=== PATIENT | male | born 1975 | race Caucasian/White ===

== ENCOUNTER → 2022-05-13 | Outpatient (CLI) | payer MEDICAID, SELFPAY | END | disposition home or self-care (01) | PROVIDERS: Visit Provider Internal Medicine | DX: G47.10 Hypersomnia, unspecified (principal); R53.83 Other fatigue; R29.818 Other symptoms and signs involving the nervous system | CPT/HCPCS: 95810 ==

== ENCOUNTER → 2022-06-13 | Outpatient (CLI) | payer MEDICAID, SELFPAY ==
[2022-06-13 16:39] LABS: Absolute Lymphocyte Count 1.83 X10^3/uL (0.83-4.51); Absolute Neutrophil Count 5.4 X10^3/uL (2.0-7.7); Basophil# 0.09 X10^3/uL; Basophil% 1.1 % (0-1); Eosinophil# 0.15 X10^3/uL; Eosinophils% 1.8 % (0-5); Hematocrit 45.5 % (40-54); Hemoglobin 14.8 g/dL (13.0-16.5); Lymphocyte # 1.83 X10^3/ul (0.83-4.51); Lymphocyte % 22.2 % (19-41); Mean Corp Hgb Conc 32.5 g/dL (32-36); Mean Corpuscular Hgb 29.6 pg (27.0-32.0); Mean Platelet Vol. 9.5 fl (6.2-12.0); Monocyte% 9.7 % (0-10); NRBC Flagged by Analyzer 0 % (0-5); Neutrophil # 5.35 X10^3/uL (2.7-7.7); Neutrophil % 64.8 % (47-70); Platelet Count 388 K/mm3 (150-450); RBC Distribution Width CV 14.6 % (11.6-14.6); RBC Distribution Width SD 49.1 fl (35.1-43.9); Vitamin D,25 Hydroxy 14.9 ng/mL; White Blood Count 8.3 K/mm3 (4.4-11.0)
[2022-06-13 16:46] LABS: ALB/GLOB Ratio 1.1 RATIO (0.9-2.4); AST(SGOT) 25 U/L (15-37); Alanine Aminotransfer ALT/SGPT 37 U/L (16-61); Albumin, Serum 3.8 g/dL (3.2-5.0); Alkaline Phosphatase 123 U/L (45-117); Anion Gap 6 (5-15); BUN 16 mg/dL (7-18); BUN/Creat Ratio 18.2 RATIO (10-20); Calcium,Total 9.1 mg/dL (8.5-10.1); Chloride 105 mmol/L (98-107); Cholesterol 260 mg/dL (200); Creatinine, Serum 0.88 mg/dL (0.70-1.30); EST Glomerular Filtration Rate 100 mL/min (>60); Est Glom Filt Rate - Afr Amer 121 mL/min (>60); Globulin 3.6 g/dL (2.2-4.2); Glucose 95 mg/dL (74-106); High Density Lipoprotein 34 mg/dL; Potassium 3.9 mmol/L (3.5-5.1); Protein, Total 7.4 g/dL (6.4-8.2); Sodium Level 138 mmol/L (136-145); Thyroid Stim Hormone (TSH) 3.03 uIU/mL (0.358-3.74); Triglycerides 337 mg/dL; Very Low Density Lipoprotein 67 mg/dL (5-40)
== END | disposition home or self-care (01) ==
LOC: BIMLAB 15:30
PROVIDERS: PCP Internal Medicine; Referring Provider Internal Medicine; Visit Provider Internal Medicine
DX: R53.83 Other fatigue (principal); R29.818 Other symptoms and signs involving the nervous system; Z13.6 Encounter for screening for cardiovascular disorders; Z83.3 Family history of diabetes mellitus
CPT/HCPCS: 36415; 80053; 80061; 82306; 83036; 84443; 85025

== ENCOUNTER → 2023-06-29 | Outpatient (CLI) | payer SELFPAY ==
[2023-06-29 15:37] LABS: Absolute Lymphocyte Count 1.86 X10^3/uL (0.83-4.51); Absolute Neutrophil Count 4.5 X10^3/uL (2.0-7.7); Basophil# 0.05 X10^3/uL; Basophil% 0.7 % (0-1); Eosinophil# 0.15 X10^3/uL; Eosinophils% 2.1 % (0-5); Hematocrit 44.6 % (40-54); Hemoglobin 14.4 g/dL (13.0-16.5); Lymphocyte # 1.86 X10^3/ul (0.83-4.51); Lymphocyte % 25.4 % (19-41); Mean Corp Hgb Conc 32.3 g/dL (32-36); Mean Corpuscular Volume 89.7 fL (80-94); Mean Platelet Vol. 9.4 fl (6.2-12.0); Monocyte# 0.72 X10^3/uL; Monocyte% 9.8 % (0-10); NRBC Flagged by Analyzer 0 % (0-5); Neutrophil % 61.6 % (47-70); Platelet Count 444 K/mm3 (150-450); RBC Distribution Width CV 14.1 % (11.6-14.6); RBC Distribution Width SD 46.6 fl (35.1-43.9); Red Blood Count 4.97 M/mm3 (4.6-6.2); White Blood Count 7.3 K/mm3 (4.4-11.0)
[2023-06-29 16:28] LABS: ALB/GLOB Ratio 1.1 RATIO (0.9-2.4); AST(SGOT) 27 U/L (15-37); Alanine Aminotransfer ALT/SGPT 63 U/L (16-61); Albumin, Serum 3.8 g/dL (3.2-5.0); Alkaline Phosphatase 140 U/L (45-117); Anion Gap 4 (5-15); BUN 17 mg/dL (7-18); BUN/Creat Ratio 22.3 RATIO (10-20); Calcium,Total 9.1 mg/dL (8.5-10.1); Chloride 109 mmol/L (98-107); Creatinine, Serum 0.76 mg/dL (0.70-1.30); EST Glomerular Filtration Rate 117 mL/min (>60); Est Glom Filt Rate - Afr Amer 142 mL/min (>60); Globulin 3.5 g/dL (2.2-4.2); Glucose 80 mg/dL (74-106); Potassium 4.2 mmol/L (3.5-5.1); Protein, Total 7.3 g/dL (6.4-8.2); Sodium Level 140 mmol/L (136-145)
--- OUTSIDE RECORDS SUMMARY | 2023-06-29 21:26 | XMS RPT_ITS | CCD ---
Author Name Unknown Address [id number] [place] [address] Organization [facility] Care Team Providers Care Gis Professor Name Role Phone NO FAMILY PHYSICIAN, 837 Unavailable Unavail able FABIO SHEARER Unavailable Unavailable PROVIDER, UNKNOWN Referring Unavailable No, PCP Primary Care Unavailable EYAD WILSON Attending Unavailable PROVIDER, UNKNOWN Referring Unavailable No, PCP Primary Care Unavailable Jorge Castellano Attending Unavailable PROVIDER, UNKNOWN Referring Unavailable No, PCP Primary Care Unavailable Domenico Vazquez Attending Unavailable Unavailable [facility] Primary Care Provider Patricia Barksdale MD Primary Care Provider PATRICIA BARKSDALE Primary Care Unavailable EYAD MAO Attending Unavailable PATRICIA BARKSDALE Primary Care Unavailable ELIDA VU Attending Unavailable EYAD MAO Referring Unavailable JUS HENDRIX Admitting Unavailable AV SARMIENTO Referring Unav ailable PATRICIA BARKSDALE Primary Care Unavailable PATRICIA BARKSDALE Referring Unavailable PATRICIA BARKSDALE Referring Unavailable PATRICIA BARKSDALE Referring Unavailable Medications Current Medications Medication Drug Class(es) Dates Sig (Normalized) Sig (Original) aspirin 81 mg delayed release oral tablet (1 source) Platelet Aggregation Inhibitor, Nonsteroidal Anti-inflammatory Drug Start: 06-21-2023 End: 07-21-2023 take 1 tablet by mouth once daily aspirin, enteric coated (ASPIRIN, ENTERIC COATED) 81 mg EC tablet Take 1 tablet by mouth once daily. Patient should start on June 21, 2023. 30 tablet 0 06/21/2023 07/21/2023 Active Completed/Discontinued Medications Medication Drug Class(es) Dates Sig (Normalized) Sig (Original) acetaminophen 325 mg / HYDROcodone bitartrate 5 mg oral tablet (1 source) Opioid Agonist Start: 09-04-2019 End: 09-04-2019 HYDROcodone-acetam inophen (NORCO) 5-325 MG per tablet 1 tablet erythromycin 0.005 mg/mg ophthalmic ointment (1 source) Macrolide, Macrolide Antimicrobial Start: 08-20-2018 End: 09-04-2019 erythromycin (ROMYCIN) 5 MG/GM ophthalmic ointment Place 0.5 cm into the left eye 2 times daily 1 Tube 0 08/20/2018 09/04/2019 Discontinued (LIST CLEANUP) Problems Problem Classification Problem Date Documented Date Episodic/Chronic Acute cerebrovascular disease (5 sources) Stroke of uncertain pathology; Translations: [Cerebral infarction, unspecified] Onset: 06-13-2023 06-15-2023 Chronic Disorders of lipid metabolism (1 source) Mixed hyperlipidemia; Translations: [Mixed hyperlipidemia] Onset: 07-23-2022 Chronic Nutritional deficiencies (1 source) Vitamin D deficiency, unspecified; Translations: [Avitaminosis D] Onset: 07-23-2022 Chronic Other circulatory disease (1 source) Other specified symptoms and signs involving the circulatory and respiratory systems; Translations: [Suspected cerebrovascular accident (CVA)] Onset: 06-14-2023 Episodic Other circulatory disease (1 source) Suspected cerebrovascular accident; Translations: [Other specified symptoms and signs involving the circulatory and respiratory systems] Onset: 06-14-2023 06-14-2023 Episodic Other connective tissue disease (1 source) Rupture of tendon of biceps; Translations: [Rupture of left distal biceps tendon, initial encounter] Episodic Other connective tissue disease (1 source) Neurological symptom; Translations: [Unspecified symptoms and signs involving the nervous system] Onset: 06-14-2023 06-14-2023 Episodic Other injuries and conditions due to external causes (2 sources) Foreign body in cornea, right eye, initial encounter; Translations: [Foreign body in cornea, right eye, initial encounter] Onset: 08-20-2018 Other injuries and conditions due to external causes (2 sources) Foreign body in cornea, left eye, initial encounter; Translations: [Foreign body in cornea, left eye, initial encounter] Onset: 05-07-2018 Other nervous system disorders (1 source) Aphasia; Translations: [Aphasia] 06-13-2023 Chronic Other nervous system disorders (1 source) Disturbance in speech; Translations: [Unspecified speech disturbances] Onset: 06-14-2023 06-14-2023 Episodic Substance-related disorders (1 source) Nicotine dependence; Translations: [Nicotine dependence, unspecified, uncomplicated] Onset: 06-14-2023 06-14-2023 Chronic Transient cerebral ischemia (1 source) Transient cerebral ischemia; Translations: [Transient cerebral ischemic attack, unspecified] Onset: 06-14-2023 06-14-2023 Chronic Unclassified (1 source) Foreign body in right cornea; Translations: [Corneal foreign body, right, initial encounter] Onset: 05-02-2018 08-20-2018 Results Test Name Value Interpretation Reference Range Facil ity Vital Signs Date Time Vital Sign Value Performing Clinician Faci litsina 09-04-2019 19:58-0400 BP Diastolic 86 mm[Hg] [place], [place] 09-04-2019 19:58-0400 BP Systolic 145 mm[Hg] [place] 09-04-2019 19:58-0400 Pulse (Heart Rate) 80 /min [place], [place] 09-04-2019 19:58-0400 Pulse Oximetry 96 % [place], [place] 09-04-2019 19:58-0400 Respiratory Rate 14 /min [place], [place] 09-04-2019 18:50-0400 Body Temperature 98.49 [degF] [place] Encounters Encounter Date Encounter Type Care Provider Facility Start: 06-21-2023 ambulatory AV SARMIENTO Facility:[facility] Start: 06-21-2023 End: 06-21-2023 Subsequent hospital visit by physician Ekg/Holter/Event Monitor [facility] Procedures Date Procedure Procedure Detail Performing Clinician Start: 06-14-2023 Lipid 1996 panel - S angus or Plasma Ekg/Holter/Event [facility] Start: 07-23-2022 Lipid 1996 panel - S angus or Plasma Yulia Mckeon MD Work Phone: Start: 09-04-2019 Radex elbow complete minimum 3 views Cale Saraviaash Work Phone: Plan of Treatment Date Care Activity Detail Author Start: 06-14-2028 Lipid panel Lipid Screening [facility] Start: 08-11-2027 DTaP/Tdap/Td vaccine (2 - Td) DTaP/Tdap/Td vaccine (2 - Td) [place], [place] Start: 08-11-2027 Urine microalbumin profile DTaP,Tdap,Td Vaccine (2 - Td or Tdap) [facility] Start: 07-24-2027 Lipid panel Lipid Screening [facility] Start: 07-24-2027 LIPID SCREEN LIPID SCREEN [facility] Start: 06-14-2026 Diabetes Screening Diabetes Screening [facility] Start: 06-13-2026 Diabetes Screening Diabetes Screening [facility] Start: 08-05-2025 DIABETES SCREEN DIABETES SCREEN [facility] Start: 05-01-2023 Depression Assessment Depression Assessment [facility] Start: 12-30-2022 Influenza vaccination [facility] Start: 2022 COLOGUARD (FIT-DNA) COLOGUARD (FIT-DNA) [facility] Start: 2022 Colonoscopy COLONOSCOPY [facility] Start: 2022 COLORECTAL CANCER SCREENING COLORECTAL CANCER SCREENING [facility] Start: [address] COLONOGRAPHY [facility] Start: 2022 FECAL OCCULT BLOOD FECAL OCCULT BLOOD [facility] Start: 2022 Screening for malignant neoplasm of colon [facility] Start: 2022 SIGMOIDOSCOPY SIGMOIDOSCOPY [facility] Start: 05-01-2022 DEPRESSION ASSESSMENT DEPRESSION ASSESSMENT [facility] Start: 12-31-2019 Influenza vaccination Flu vaccine (Season Ended) [place], [place] Start: 2017 Lipid panel Lipid screen [place], [place] Start: 1996 Urine microalbumin profile DTAP,TDAP,TD (1 - Tdap) [facility] Start: 08-03-1995 HEPATITIS C SCREENING HEPATITIS C SCREENING [facility] Start: 08-03-1995 HIV SCREENING HIV SCREENING [facility] Start: 08-03-1995 HIV screening HIV Screening [facility] Start: 1992 HIV screening HIV screen [place], [place] Start: 08-03-1983 PNEUMOCOCCAL (1 - PCV) PNEUMOCOCCAL (1 - PCV) [facility] Start: 08-03-1983 Pneumococcal 0-64 years Vaccine (1 of 1 - PPSV23) Pneumococcal 0-64 years Vaccine (1 of 1 - PPSV23) [place], [place] Start: 08-03-1983 Pneumococcal vaccination Pneumococcal Vaccine (1 of 2 - PCV) [facility] Start: 02-01-1978 COVID-19 VACCINE (#1) COVID-19 VACCINE (#1) [facility] Start: 1977 HEPATITIS B (1 of 3 - 3-dose series) HEPATITIS B (1 of 3 - 3-dose series) [facility] Start: 1977 Hepatitis B Vaccine (1 of 3 - 3-dose series) Hepatitis B Vaccine (1 of 3 - 3-dose series) [facility] Payers Date Payer Category Payer Medicaid [employer] [facility] [employer] [facility] [place] [id number] 2022-Present [phone] [address] [address] [place] [address] Medicaid [id number] 2022 Medicaid [id number] 2018 Medicaid [employer] [place] [employer] [facility] [place] [employer] xxxxxxxxxxxx 2018-Present [phone] [address] [address] [place] [address] xxxxxxxxxxxx [id number] 1977 Unknown [id number] 1977 Unknown [id number] 1977 Unknown [id number] Unknown Social History Date Type Detail Facility Start: 09-04-2019 End: 09-30-2021 Tobacco smoking status NHIS Current every day smoker [facility] Start: 09-04-2019 End: 06-14-2023 Cigarettes smoked current (pack per day) - Reported [facility] Work Phone: Start: 09-04-2019 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1975 [facility] Exposure to SARS-CoV -2 (event) [facility] to assess [facility] History of tobacco use Cigarette Smoker [facility] Start: 09-30-2021 Tobacco use and exposure Smokeless tobacco non-user [facility] Start: 10-11-2021 End: 06-13-2023 Alcohol intake Ex-drinker (finding) [facility] Start: 06-13-2023 End: 06-14-2023 Tobacco use panel [facility] Work Phone: National Score (1-10 0), lower number is lower risk 81 [facility] Work Phone: Has the [employer], or [employer] threatened to shut off services in your home in past 12Mo No [facility] Work Phone: (I/We) worried wheth er (my/our) food would run out before (I/we) got money to buy more. Never true [facility] Work Phone: Clinical Notes 06-13-2023 to 06-21-2023 Kari Montero Strategic Planning Specialist - 06/21/2023 11:00 AM Yulia Talbot MD - 06/13/2023 2:23 PM EST Note Date & Type Note Facility 06-21-2023 Nurse Note Event monitor applied. Pt verbalized understanding of monitor use and appropriately demonstrated recording a baseline. documented in this encounter [facility] 06-20-2023 Note HNO ID: [id number] Author: JASE MCKENZIE RN Service: ? Author Type: Registered Nurse Type: Nursing Progress Note Filed: 06/20/2023 18:17 Note Text: Patient given AVS, no questions at this time. Patient walked to the main entrance for discharge. [facility] 06-20-2023 Note HNO ID: [id number] Author: JASE MCKENZIE RN Service: ? Author Type: Registered Nurse Type: Nursing Progress Note Filed: 06/20/2023 12:23 Note Text: Patient is on IV fluids due to NPO status, but patient requested to be disconnected this morning. [facility] 06-19-2023 Note HNO ID: [id number] Author: ARVIN ISABEL MD Service: Hospital Medicine Author Type: Physician Type: Progress Notes Filed: 06/19/2023 15:26 Note Text: INPATIENT PROGRESS NOTE [facility] OF [facility] MEDICINE SERVICE DATE: 06/19/2023 NIGHT AND WEEKEND COVERAGE: From 7am - 7pm, please call Sound Attending After 7pm, please call cross cover pager #[phone] Subjective No acute events overnight. +frustrated Current Facility-Administered Medications Medication Dose Route Frequency NaCl 0.9% iv flush bag 20 mL INTRAVENOUS PRN acetaminophen 650 mg tab(s) (TYLENOL) 650 mg ORAL q 6 H PRN aspirin, enteric coated 81 mg tab(s) 81 mg ORAL DAILY clopidogrel 75 mg tab(s) (PLAVIX) 75 mg ORAL DAILY nicotine 21 mg/24 hr 1 Patch (NICODERM) 1 Patch TRANSDERMAL DAILY And nicotine -- REMOVE patch OTHER DAILY And nicotine - verify patch OTHER q 8 H atorvastatin 80 mg tab(s) (LIPITOR) 80 mg ORAL AT BEDTIME calcium carbonate 750 mg chewable tab(s) (TUMS) 750 mg ORAL TID PRN pantoprazole DR 40 mg tab(s) (PROTONIX) 40 mg ORAL DAILY (6 AM) aluminum-magnesium hydroxide-simethicone 200-200-20 mg/5 mL 30 mL 30 mL ORAL q 6 H PRN Objective PHYSICAL EXAM: BP 111/71 Pulse 79 Temp (Src) 97.9 (Oral) Resp 18 Ht 5' 8 (1.73m) Wt 186 lb 15.2 oz (84.8kg) SpO2 97% BMI 28.43 kg/(m2). O2 Therapy: Room Air General Appearance: no acute distress, appears stated age Lungs: Clear to auscultation bilaterally, respirations unlabored Heart: Regular rate and rhythm, S1, S2 normal, no murmur Abdomen: Soft, non-tender, bowel sounds active Extremities: No leg edema Pulses: 2+ and symmetric. Brisk capillary refill DATA: WBC (k/uL) Date Value 06/14/2023 6.69 Hemoglobin (g/dL) Date Value 06/14/2023 15.4 Hematocrit (%) Date Value 06/14/2023 45.4 MCV (fL) Date Value 06/14/2023 89.2 Platelet Count (k/uL) Date Value 06/14/2023 170 BUN (mg/dL) Date Value 06/14/2023 18 Creatinine (mg/dL) Date Value 06/14/2023 0.67 Sodium (mmol/L) Date Value 06/14/2023 134 Potassium (no units) Date Value 06/14/2023 Comment: Unable to assay due to interference from hemolysis. Suggest reorder as clinically indicated. Alkaline Phosphatase (no units) Date Value 06/14/2023 Comment: Unable to assay due to interference from hemolysis. Suggest reorder as clinically indicated. AST (no units) Date Value 06/14/2023 Comment: Unable to assay due to interference from hemolysis. Suggest reorder as clinically indicated. ALT (no units) Date Value 06/14/2023 Comment: Unable to assay due to interference from hemolysis. Suggest reorder as clinically indicated. I have reviewed today's vital signs, medications, labs, and imaging. 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 CT brain and CTA head and neck negative for acute pathology. No thrombolysis. MRI showed multiple acute infarcts involving the above regions. Echocardiogram showed normal left ventricular ejection fraction with intracardiac shunting. Evaluated by physical, occupational and speech therapy. Neurology recommends dual antiplatelet therapy with aspirin and Plavix for 21 days followed by aspirin monotherapy. Atorvastatin 80 mg daily. Lifestyle modifications. DVT ultrasound pending. Discussed with Neurology. Discussed with Cardiology. Plan for BRITNI tomorrow. NPO after midnight. Hypercoagulable panel pending. #asymptomatic COVID infection Persistent COVID+ . Diagnosed with COVID 2 months ago. Continue to monitor. On room air #Nicotine use disorder, F17.2 Assessment AND Plan: smoking cessation I reviewed: Most recent labs and imaging results. Most recent labs Most recent imaging Most recent EKG VTE Prophylaxis: Anticoagulant AND Antiplatelet Medications (From admission, onward) Start Dose Route Frequency Last Action Ordered Stop 06/14/23 1130 aspirin, enteric coated 81 mg tab(s) 81 mg ORAL DAILY Given, 06/19 0906/14/23 1129 -- 06/14/23 1130 clopidogrel 75 mg tab(s) (PLAVIX) 75 mg ORAL DAILY Given, 06/19 90306/14/23 1129 07/05/23 0859 Plan of care discussed with: Provider, RN, Patient. Agrees to plan. All questions and concerns answered to patient's satisf (more content not included)... [facility] 06-19-2023 Note HNO ID: [id number] Author: BROCK PÉREZ RN Service: Care Management Author Type: Registered Nurse Type: Care Mgt Progress Note Filed: 06/19/2023 12:58 Note Text: CARE MANAGEMENT PROGRESS NOTE SERVICE DATE: 06/19/2023 SERVICE TIME: 12:57 PM LOS: 4 days Needs Prior to Discharge: None Chart reviewed. [place] states he is over income for Medicaid application. Financial Counselor is trying to make contact to see if he is HCAP or FAS eligible. Therapy recommends home no needs. The patient's significant other will drive him home when ready for discharge. SIGNATURE: Brock Pérez RN PATIENT NAME: Yu Kuhn DATE: June 19, 2023 TIME: 12:57 PM PAGER/CONTACT #: [phone] [facility] 06-18-2023 Note HNO ID: [id number] Author: ARVIN ISABEL MD Service: Hospital Medicine Author Type: Physician Type: Progress Notes Filed: 06/18/2023 13:00 Note Text: INPATIENT PROGRESS NOTE DEPARTMENT OF HOSPITAL MEDICINE SERVICE DATE: 06/18/2023 NIGHT AND WEEKEND COVERAGE: From 7am - 7pm, please call Sound Attending After 7pm, please call cross cover pager #[phone] Subjective No acute events overnight. Denies dyspnea or new focal weakness Current Facility-Administered Medications Medication Dose Route Frequency NaCl 0.9% iv flush bag 20 mL INTRAVENOUS PRN sodium chloride 0.9 % (flush) 2-10 mL (BD POSIFLUSH) 2-10 mL INTRAVENOUS DIRECTED PRN And perflutren lipid microspheres 1.1 mg/mL 1.3 mL injection (DEFINITY) 1.3 mL INTRAVENOUS DIRECTED PRN acetaminophen 650 mg tab(s) (TYLENOL) 650 mg ORAL q 6 H PRN aspirin, enteric coated 81 mg tab(s) 81 mg ORAL DAILY clopidogrel 75 mg tab(s) (PLAVIX) 75 mg ORAL DAILY nicotine 21 mg/24 hr 1 Patch (NICODERM) 1 Patch TRANSDERMAL DAILY And nicotine -- REMOVE patch OTHER DAILY And nicotine - verify patch OTHER q 8 H atorvastatin 80 mg tab(s) (LIPITOR) 80 mg ORAL AT BEDTIME calcium carbonate 750 mg chewable tab(s) (TUMS) 750 mg ORAL TID PRN Objective PHYSICAL EXAM: BP 128/87 Pulse 68 Temp (Src) 97.5 (Oral) Resp 16 Ht 5' 8 (1.73m) Wt 186 lb 15.2 oz (84.8kg) SpO2 98% BMI 28.43 kg/(m2). O2 Therapy: Room Air General Appearance: no acute distress, appears stated age Lungs: Clear to auscultation bilaterally, respirations unlabored Heart: Regular rate and rhythm, S1, S2 normal, no murmur Abdomen: Soft, non-tender, bowel sounds active Extremities: No leg edema Pulses: 2+ and symmetric. Brisk capillary refill DATA: WBC (k/uL) Date Value 06/14/2023 6.69 Hemoglobin (g/dL) Date Value 06/14/2023 15.4 Hematocrit (%) Date Value 06/14/2023 45.4 MCV (fL) Date Value 06/14/2023 89.2 Platelet Count (k/uL) Date Value 06/14/2023 170 BUN (mg/dL) Date Value 06/14/2023 18 Creatinine (mg/dL) Date Value 06/14/2023 0.67 Sodium (mmol/L) Date Value 06/14/2023 134 Potassium (no units) Date Value 06/14/2023 Comment: Unable to assay due to interference from hemolysis. Suggest reorder as clinically indicated. Alkaline Phosphatase (no units) Date Value 06/14/2023 Comment: Unable to assay due to interference from hemolysis. Suggest reorder as clinically indicated. AST (no units) Date Value 06/14/2023 Comment: Unable to assay due to interference from hemolysis. Suggest reorder as clinically indicated. ALT (no units) Date Value 06/14/2023 Comment: Unable to assay due to interference from hemolysis. Suggest reorder as clinically indicated. I have reviewed today's vital signs, medications, labs, and imaging. 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 CT brain and CTA head and neck negative for acute pathology. No thrombolysis. MRI showed multiple acute infarcts involving the above regions. Echocardiogram showed normal left ventricular ejection fraction with intracardiac shunting. Evaluated by physical, occupational and speech therapy. Neurology recommends dual antiplatelet therapy with aspirin and Plavix for 21 days followed by aspirin monotherapy. Atorvastatin 80 mg daily. Lifestyle modifications. DVT ultrasound pending. Neuro following. Plan BRITNI. TBD given COVID + status. Hypercoagulable panel pending. #asymptomatic COVID infection Persistent COVID+ . Diagnosed with COVID 2 months ago. Continue to monitor. On room air #Nicotine use disorder, F17.2 Assessment AND Plan: smoking cessation I reviewed: Most recent labs and imaging results. Most recent labs Most recent imaging Most recent EKG VTE Prophylaxis: Anticoagulant AND Antiplatelet Medications (From admission, onward) Start Dose Route Frequency Last Action Ordered Stop 06/14/23 1130 aspirin, enteric coated 81 mg tab(s) 81 mg ORAL DAILY Given, 06/18 0806/14/23 1129 -- 06/14/23 1130 clopidogrel 75 mg tab(s) (PLAVIX) 75 mg ORAL DAILY Given, 06/18 85806/14/23 1129 07/05/23 0859 Plan of care discussed with: Provider, RN, Patient. Agrees to plan. All questions and concer (more content not included)... [facility] 06-17-2023 Note HNO ID: [id number] Author: ARVIN ISABEL MD Service: Hospital Medicine Author Type: Physician Type: Progress Notes Filed: 06/17/2023 13:07 Note Text: INPATIENT PROGRESS NOTE DEPARTMENT OF HOSPITAL MEDICINE SERVICE DATE: 06/17/2023 NIGHT AND WEEKEND COVERAGE: From 7am - 7pm, please call Sound Attending After 7pm, please call cross cover pager #[phone] Subjective No acute events overnight. Upset about needing to stay for BRITNI Current Facility-Administered Medications Medication Dose Route Frequency NaCl 0.9% iv flush bag 20 mL INTRAVENOUS PRN sodium chloride 0.9 % (flush) 2-10 mL (BD POSIFLUSH) 2-10 mL INTRAVENOUS DIRECTED PRN And perflutren lipid microspheres 1.1 mg/mL 1.3 mL injection (DEFINITY) 1.3 mL INTRAVENOUS DIRECTED PRN acetaminophen 650 mg tab(s) (TYLENOL) 650 mg ORAL q 6 H PRN aspirin, enteric coated 81 mg tab(s) 81 mg ORAL DAILY clopidogrel 75 mg tab(s) (PLAVIX) 75 mg ORAL DAILY nicotine 21 mg/24 hr 1 Patch (NICODERM) 1 Patch TRANSDERMAL DAILY And nicotine -- REMOVE patch OTHER DAILY And nicotine - verify patch OTHER q 8 H atorvastatin 80 mg tab(s) (LIPITOR) 80 mg ORAL AT BEDTIME calcium carbonate 750 mg chewable tab(s) (TUMS) 750 mg ORAL TID PRN Objective PHYSICAL EXAM: BP 134/85 Pulse 64 Temp (Src) 97.6 (Oral) Resp 18 Ht 5' 8 (1.73m) Wt 186 lb 15.2 oz (84.8kg) SpO2 99% BMI 28.43 kg/(m2). O2 Therapy: Room Air General Appearance: no acute distress, appears stated age Lungs: Clear to auscultation bilaterally, respirations unlabored Heart: Regular rate and rhythm, S1, S2 normal, no murmur Abdomen: Soft, non-tender, bowel sounds active Extremities: No leg edema Pulses: 2+ and symmetric. Brisk capillary refill DATA: WBC (k/uL) Date Value 06/14/2023 6.69 Hemoglobin (g/dL) Date Value 06/14/2023 15.4 Hematocrit (%) Date Value 06/14/2023 45.4 MCV (fL) Date Value 06/14/2023 89.2 Platelet Count (k/uL) Date Value 06/14/2023 170 BUN (mg/dL) Date Value 06/14/2023 18 Creatinine (mg/dL) Date Value 06/14/2023 0.67 Sodium (mmol/L) Date Value 06/14/2023 134 Potassium (no units) Date Value 06/14/2023 Comment: Unable to assay due to interference from hemolysis. Suggest reorder as clinically indicated. Alkaline Phosphatase (no units) Date Value 06/14/2023 Comment: Unable to assay due to interference from hemolysis. Suggest reorder as clinically indicated. AST (no units) Date Value 06/14/2023 Comment: Unable to assay due to interference from hemolysis. Suggest reorder as clinically indicated. ALT (no units) Date Value 06/14/2023 Comment: Unable to assay due to interference from hemolysis. Suggest reorder as clinically indicated. I have reviewed today's vital signs, medications, labs, and imaging. 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 CT brain and CTA head and neck negative for acute pathology. No thrombolysis. MRI showed multiple acute infarcts involving the above regions. Echocardiogram showed normal left ventricular ejection fraction with intracardiac shunting. Evaluated by physical, occupational and speech therapy. Neurology recommends dual antiplatelet therapy with aspirin and Plavix for 21 days followed by aspirin monotherapy. Atorvastatin 80 mg daily. Lifestyle modifications. DVT ultrasound pending. Discussed with Neurology. Plan BRITNI. Hypercoagulable panel pending. #Nicotine use disorder, F17.2 Assessment AND Plan: smoking cessation I reviewed: Most recent labs and imaging results. Most recent labs Most recent imaging Most recent EKG VTE Prophylaxis: Anticoagulant AND Antiplatelet Medications (From admission, onward) Start Dose Route Frequency Last Action Ordered Stop 06/14/23 1130 aspirin, enteric coated 81 mg tab(s) 81 mg ORAL DAILY Given, 06/17 89906/14/23 1129 -- 06/14/23 1130 clopidogrel 75 mg tab(s) (PLAVIX) 75 mg ORAL DAILY Given, 06/17 89906/14/23 1129 07/05/23 0859 Plan of care discussed with: Provider, RN, Patient. Agrees to plan. All questions and concerns answered to patient's satisfaction. I examined the patient and reviewed the chart. SIGNATURE: Arvin Isabel MD PATIENT NAME: Yu Malcolm (more content not included)... [facility] 06-16-2023 Note HNO ID: [id number] Author: ARVIN ISABEL MD Service: Hospital Medicine Author Type: Physician Type: Progress Notes Filed: 06/16/2023 11:02 Note Text: INPATIENT PROGRESS NOTE [facility]PARTMENT OF [facility] MEDICINE SERVICE DATE: 06/16/2023 NIGHT AND WEEKEND COVERAGE: From 7am - 7pm, please call Sound Attending After 7pm, please call cross cover pager #[phone] Subjective No acute events overnight. No medical concerns nor complaints Current Facility-Administered Medications Medication Dose Route Frequency NaCl 0.9% iv flush bag 20 mL INTRAVENOUS PRN sodium chloride 0.9 % (flush) 2-10 mL (BD POSIFLUSH) 2-10 mL INTRAVENOUS DIRECTED PRN And perflutren lipid microspheres 1.1 mg/mL 1.3 mL injection (DEFINITY) 1.3 mL INTRAVENOUS DIRECTED PRN acetaminophen 650 mg tab(s) (TYLENOL) 650 mg ORAL q 6 H PRN aspirin, enteric coated 81 mg tab(s) 81 mg ORAL DAILY clopidogrel 75 mg tab(s) (PLAVIX) 75 mg ORAL DAILY nicotine 21 mg/24 hr 1 Patch (NICODERM) 1 Patch TRANSDERMAL DAILY And nicotine -- REMOVE patch OTHER DAILY And nicotine - verify patch OTHER q 8 H atorvastatin 80 mg tab(s) (LIPITOR) 80 mg ORAL AT BEDTIME Objective PHYSICAL EXAM: BP 140/67 Pulse 68 Temp (Src) 97.7 (Oral) Resp 16 Ht 5' 8 (1.73m) Wt 186 lb 15.2 oz (84.8kg) SpO2 98% BMI 28.43 kg/(m2). O2 Therapy: Room Air General Appearance: no acute distress, appears stated age Lungs: Clear to auscultation bilaterally, respirations unlabored Heart: Regular rate and rhythm, S1, S2 normal, no murmur Abdomen: Soft, non-tender, bowel sounds active Extremities: No leg edema Pulses: 2+ and symmetric. Brisk capillary refill DATA: WBC (k/uL) Date Value 06/14/2023 6.69 Hemoglobin (g/dL) Date Value 06/14/2023 15.4 Hematocrit (%) Date Value 06/14/2023 45.4 MCV (fL) Date Value 06/14/2023 89.2 Platelet Count (k/uL) Date Value 06/14/2023 170 BUN (mg/dL) Date Value 06/14/2023 18 Creatinine (mg/dL) Date Value 06/14/2023 0.67 Sodium (mmol/L) Date Value 06/14/2023 134 Potassium (no units) Date Value 06/14/2023 Comment: Unable to assay due to interference from hemolysis. Suggest reorder as clinically indicated. Alkaline Phosphatase (no units) Date Value 06/14/2023 Comment: Unable to assay due to interference from hemolysis. Suggest reorder as clinically indicated. AST (no units) Date Value 06/14/2023 Comment: Unable to assay due to interference from hemolysis. Suggest reorder as clinically indicated. ALT (no units) Date Value 06/14/2023 Comment: Unable to assay due to interference from hemolysis. Suggest reorder as clinically indicated. I have reviewed today's vital signs, medications, labs, and imaging. 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 CT brain and CTA head and neck negative for acute pathology. No thrombolysis. MRI showed multiple acute infarcts involving the above regions. Echocardiogram showed normal left ventricular ejection fraction with intracardiac shunting. Evaluated by physical, occupational and speech therapy. Neurology recommends dual antiplatelet therapy with aspirin and Plavix for 21 days followed by aspirin monotherapy. Atorvastatin 80 mg daily. Lifestyle modifications. DVT ultrasound pending. Discussed with Neurology. Plan BRITNI. Hypercoagulable panel pending. #Nicotine use disorder, F17.2 Assessment AND Plan: smoking cessation I reviewed: Most recent labs and imaging results. Most recent labs Most recent imaging Most recent EKG VTE Prophylaxis: Anticoagulant AND Antiplatelet Medications (From admission, onward) Start Dose Route Frequency Last Action Ordered Stop 06/14/23 1130 aspirin, enteric coated 81 mg tab(s) 81 mg ORAL DAILY Given, 06/16 82406/14/23 1129 -- 06/14/23 1130 clopidogrel 75 mg tab(s) (PLAVIX) 75 mg ORAL DAILY Given, 06/16 82406/14/23 1129 07/05/23 0859 Plan of care discussed with: Provider, RN, Patient. Agrees to plan. All questions and concerns answered to patient's satisfaction. I examined the patient and reviewed the chart. SIGNATURE: Arvin Isabel MD PATIENT NAME: Yu Kuhn DATE: June 16, 2023 TIME: 11:02 AM PAGER: [facility] 06-16-2023 Note HNO ID: [id number] Author: BECKI VASQUEZ RN Service: Care Management Author Type: Registered Nurse Type: Care Mgt Progress Note Filed: 06/19/2023 09:34 Note Text: CARE MANAGEMENT PROGRESS NOTE SERVICE DATE: 06/16/2023 SERVICE TIME: 10:08 AM LOS: 1 day Needs Prior to Discharge: To Be Determined Chart reviewed, Plan is return home. Therapy recommends home with no skilled needs. Patient is independent, lives at home with his S.O. and their children. S.O. to provide transport at [facility] to continue to follow. SIGNATURE: Becki Vasquez RN PATIENT NAME: Yu Kuhn DATE: June 16, 2023 TIME: 10:08 AM PAGER/CONTACT #: [phone] [facility] 06-15-2023 Note HNO ID: [id number] Author: ARVIN ISABEL MD Service: Hospital Medicine Author Type: Physician Type: Progress Notes Filed: 06/15/2023 16:48 Note Text: INPATIENT PROGRESS NOTE DEPARTMENT OF HOSPITAL MEDICINE SERVICE DATE: 06/15/2023 NIGHT AND WEEKEND COVERAGE: From 7am - 7pm, please call Sound Attending After 7pm, please call cross cover pager #[phone] Subjective No acute events overnight. No new concerns or complaints. Current Facility-Administered Medications Medication Dose Route Frequency NaCl 0.9% iv flush bag 20 mL INTRAVENOUS PRN sodium chloride 0.9 % (flush) 2-10 mL (BD POSIFLUSH) 2-10 mL INTRAVENOUS DIRECTED PRN And perflutren lipid microspheres 1.1 mg/mL 1.3 mL injection (DEFINITY) 1.3 mL INTRAVENOUS DIRECTED PRN acetaminophen 650 mg tab(s) (TYLENOL) 650 mg ORAL q 6 H PRN aspirin, enteric coated 81 mg tab(s) 81 mg ORAL DAILY clopidogrel 75 mg tab(s) (PLAVIX) 75 mg ORAL DAILY nicotine 21 mg/24 hr 1 Patch (NICODERM) 1 Patch TRANSDERMAL DAILY And nicotine -- REMOVE patch OTHER DAILY And nicotine - verify patch OTHER q 8 H atorvastatin 80 mg tab(s) (LIPITOR) 80 mg ORAL AT BEDTIME Objective PHYSICAL EXAM: BP 134/80 Pulse 63 Temp (Src) 98.2 (Axillary) Resp 18 Ht 5' 8 (1.73m) Wt 186 lb 15.2 oz (84.8kg) SpO2 99% BMI 28.43 kg/(m2). O2 Therapy: Room Air General Appearance: awake, alert, no acute distress, appears stated age Lungs: Clear to auscultation bilaterally, respirations unlabored Heart: Regular rate and rhythm, S1, S2 normal, no murmur Abdomen: Soft, non-tender, bowel sounds active Extremities: No leg edema Pulses: 2+ and symmetric. Brisk capillary refill DATA: WBC (k/uL) Date Value 06/14/2023 6.69 Hemoglobin (g/dL) Date Value 06/14/2023 15.4 Hematocrit (%) Date Value 06/14/2023 45.4 MCV (fL) Date Value 06/14/2023 89.2 Platelet Count (k/uL) Date Value 06/14/2023 170 BUN (mg/dL) Date Value 06/14/2023 18 Creatinine (mg/dL) Date Value 06/14/2023 0.67 Sodium (mmol/L) Date Value 06/14/2023 134 Potassium (no units) Date Value 06/14/2023 Comment: Unable to assay due to interference from hemolysis. Suggest reorder as clinically indicated. Alkaline Phosphatase (no units) Date Value 06/14/2023 Comment: Unable to assay due to interference from hemolysis. Suggest reorder as clinically indicated. AST (no units) Date Value 06/14/2023 Comment: Unable to assay due to interference from hemolysis. Suggest reorder as clinically indicated. ALT (no units) Date Value 06/14/2023 Comment: Unable to assay due to interference from hemolysis. Suggest reorder as clinically indicated. I have reviewed today's vital signs, medications, labs, and imaging. Problem List Suspected cerebrovascular accident (CVA) (POA: Yes) TIA (transient ischemic attack) (POA: Status not on file) Speech disturbance (POA: Status not on file) Stroke-like symptoms (POA: Status not on file) Nicotine use disorder, F17.2 (POA: Status not on file) Stroke (cerebrum) (HCC) (POA: Status not on file) Assessment/Plan # Multiple acute infarcts involving the left frontal, left parietal and left temporal lobes suspect embolic in setting of patent foramen ovale # Acute aphasia and dysarthria with confusion secondary to above, resolved Very pleasant 47-year-old gentleman without any significant medical history presents emergency department complaining of acute onset aphasia, dysarthria and confusion. CT brain and CTA head and neck negative for acute pathology. No thrombolysis. MRI showed multiple acute infarcts involving the above regions. Echocardiogram showed normal left ventricular ejection fraction with intracardiac shunting. Evaluated by physical, occupational and speech therapy. Neurology recommends dual antiplatelet therapy with aspirin and Plavix for 21 days followed by aspirin monotherapy. Atorvastatin 80 mg daily. Lifestyle modifications. DVT ultrasound pending. #Nicotine use disorder, F17.2 Assessment AND Plan: smoking cessation I reviewed: Most recent labs and imaging results. Most recent labs Most recent imaging Most recent EKG VTE Prophylaxis: Anticoagulant AND Antiplatelet Medications (From admission, onward) Start Dose Route Frequency Last Action Ordered Stop 06/14/23 1130 aspirin, enteric coated 81 mg tab(s) 81 mg ORAL DAILY Given, 06/15 0747 06/14/23 1129 -- 06/14/23 1130 clopidogrel 75 mg tab(s) (PLAVIX) 75 mg ORAL DAILY Given, 06/15 0747 06/14/23 1129 07/05/23 0859 Plan of care discussed with: Provider, RN, Patient. Agrees to plan. All questions and concerns answered to patient's satisfaction. I examined the patient and reviewed the chart. SIGNATURE: Arvin Isabel MD PATIENT NAME: Yu Kuhn DATE: June 15, 2023 TIME: 4:46 PM PAGER: [facility] 06-14-2023 Note HNO ID: [id number] Author: ARVIN ISABEL MD Service: Hospital Medicine Author Type: Physician Type: Progress Notes Filed: 06/14/2023 17:39 Note Text: Neuro recommendations reviewed. MRI brain remains pending. Physical and occupational therapy evaluation. DAPT. Statin. COVID+. Asymptomatic from COVID standpoint. Satting 95-96% on RA [facility] 06-13-2023 Note HNO ID: [id number] Author: YULIA MCKEON MD Service: ? Author Type: Fellow Type: Progress Notes Filed: 06/13/2023 15:53 Note Text: Stroke Fellow Plan of Care 47M with no PMHx who presents to [place] ED with acute language difficulty. LKW best estimated to be 1 pm. Notably, pt was sending texts to his sister normally at 12:30pm. He then called his sister around 1:30 pm and was severely aphasic. On initial ED exam, NIH 5 (2 severe aphasia, 1 dysarthria, 2 questions). The patient will point to his right side, although right now his right side seems to be working ok. Notably, the patient was also sick earlier today with vomiting and diarrhea. Blood glucose 116. BP 122/82. CTH no acute process. CTA no LVO or high grade stenosis No contraindications for IV thrombolysis identified. If it is confident that the last known well is <4.5 hours, and deficits are still disabling, it would be reasonable to offer IV thrombolysis for this patient. Per chart review, it appears the patient's symptoms improved and no IV thrombolysis was given. Patient does not need to be autolaunched to [place] as pt is not a candidate for EVT. Will plan for transfer to [facility] for further neurological evaluation. Yulia Mckeon MD Vascular Neurology Fellow, PGY-5 Under the supervision of stroke staff, Dr. Lopez [facility] 06-13-2023 History of Present illness Narrative Stroke Fellow Plan of Care 47M with no PMHx who presents to [place] ED with acute language difficulty. LKW best estimated to be 1 pm. Notably, pt was sending texts to his sister normally at 12:30pm. He then called his sister around 1:30 pm and was severely aphasic. On initial ED exam, NIH 5 (2 severe aphasia, 1 dysarthria, 2 questions). The patient will point to his right side, although right now his right side seems to be working ok. Notably, the patient was also sick earlier today with vomiting and diarrhea. Blood glucose 116. BP 122/82. CTH no acute process. CTA no LVO or high grade stenosis No contraindications for IV thrombolysis identified. If it is confident that the last known well is <4.5 hours, and deficits are still disabling, it would be reasonable to offer IV thrombolysis for this patient. Per chart review, it appears the patient's symptoms improved and no IV thrombolysis was given. Patient does not need to be autolaunched to [place] as pt is not a candidate for EVT. Will plan for transfer to [facility] for further neurological evaluation. Yulia Mckeon MD Vascular Neurology Fellow, PGY-5 Under the supervision of stroke staff, Dr. 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 * Distal Biceps Tendon Repair: Pre-op (Fijian) documented in this encounter Assessments Diagnosis Rupture of left distal biceps tendon, initial encounter Health Concerns Infection Onset Date Last Indicated Resolved Time COVID-19 Confirmed 06/14/2023 06/14/2023 Additional Source Comments (unrecognized sect ion and content) No Status Records FoundNo Status Records FoundNo Status Records FoundNo Status Records FoundNo Status Records FoundNo Status Records Found INFORMATION SOURCE (unrecogn ized section and content) DATE CREATED AUTHOR AUTHOR'S ORGANIZ ATION 08/27/2018 [facility] [employer] DATE CREATED AUTHOR AUTHOR'S ORGANIZ ATION [facility]/25/2019 [facility] DATE CREATED AUTHOR AUTHOR'S ORGANIZ ATION 12/25/2019 [facility] [employer] DATE CREATED AUTHOR AUTHOR'S ORGANIZ ATION 06/15/2023 [facility] DATE CREATED AUTHOR AUTHOR'S ORGANIZ ATION 06/27/2023 [facility] Reason for Visit (unrecogniz ed section and content) Reason Comments Opened In Error Reason Comments language difficulty Specialty Diagnoses / Procedures Referred By Contac t Referred To Contact [facility] Diagnoses Stroke (HCC) Procedures EVENT MONITOR [address] S[address] MD [address] [place] [address] [facility] [place] [address] [place] [address] Referral ID Status Reason Start Date Expiration Date Visits Requested Visits Authorized [id number] New Request OON/Self Pay Override 06/21/2023 09/28/2024 1 1 Source Comments (unrecognize d section and content) In the event this informatio n is protected by the Federal Confidentiality of Alcohol and Drug Abuse Patient Records regulations: The Federal rules restrict any use of the information to criminally investigate or prosecute any alcohol or drug abuse patient.[facility] the event this information is protected by the Federal Confidentiality of Alcohol and Drug Abuse Patient Records regulations: The Federal rules restrict any use of the information to criminally investigate or prosecute any alcohol or drug abuse patient.[facility] the event this information is protected by the Federal Confidentiality of Alcohol and Drug Abuse Patient Records regulations: The Federal rules restrict any use of the information to criminally investigate or prosecute any alcohol or drug abuse patient.[facility] Care Teams (unrecognized sec tion and content) Gis Professor Relationship Specialty Start Date End Date Patricia Barksdale MD [address] [place], [place] [address] PCP - General Internal Medicine 06/13/23 Gis Professor Relationship Specialty Start Date End Date Patricia Barksdale MD [address] [place], [place] [id number] PCP - General Internal Medicine 06/13/23 FOR RECORDS PERTAINING TO PATIENTS WHO ARE OR HAVE BEEN ENROLLED IN A CHEMICAL DEPENDENCY/SUBSTANCEABUSE PROGRAM, SOME INFORMATION MAY BE OMITTED. This clinical summary was aggregated from multiple sources. Caution should be exercised in using it in the provision of clinical care. This summary normalizes information from multiple sources, and as a consequence, information in this document may materially change the coding, format and clinical context of patient data. In addition, data may be omitted in some cases. CLINICAL DECISIONS SHOULD BE BASED ON THE PRIMARY CLINICAL RECORDS. [facility] [employer] [facility]. provides no warranty or guarantee of the accuracy or completeness of information in this document.
== END | disposition home or self-care (01) ==
LOC: BIMLAB 14:01
PROVIDERS: PCP Internal Medicine; Referring Provider Internal Medicine; Visit Provider Internal Medicine
DX: I63.9 Cerebral infarction, unspecified (principal)
CPT/HCPCS: 36415; 80053; 85025